=== PATIENT | male | born 1990 | race Caucasian/White ===

== ENCOUNTER 2021-06-27 17:06 | Emergency (ER) | payer BC, SELFPAY ==
[2021-06-27 17:08] VITALS: BP 141/85; PULSE 104; RESP 20; TEMP 38; O2SAT 95; BMI 29.7
--- NOTE | 2021-06-27 17:19 | XR_ITS ---
PROCEDURE INFORMATION: Exam: XR Chest Exam date and time: 06/27/21 05:19 PM Age: 31 years old Clinical indication: Shortness of breath; Additional info: SOB TECHNIQUE: Imaging protocol: XR of the chest. Views: 1 view. COMPARISON: No relevant prior studies available. FINDINGS: Lungs: Patchy left basilar atelectasis. No consolidation. Pleural spaces: Unremarkable. No pleural effusion. No pneumothorax. Heart/Mediastinum: Unremarkable. No cardiomegaly. Bones/joints: Unremarkable. IMPRESSION: Patchy left basilar atelectasis.
[2021-06-27 18:11] VITALS: BP 135/84; PULSE 80; RESP 18; O2SAT 96
--- NOTE | 2021-06-27 18:14 | [facility].EDSOB ---
ED Disposition Clinical Impression: Pneumonia due to COVID-19 virus Disposition: Home, Self-Care Condition on Discharge: Good Instructions: DI for COVID-19 (Suspected or Confirmed ) Prescriptions: Albuterol Sulfate [Albuterol Sulfate Hfa] 1 puff IH Q4HP PRN #1 each PRN Reason: Wheezing Prescription Printed Doxycycline Hyclate [Doxycycline Hyclate 100mg Tablet] 100 mg PO Q12 #20 tab Prescription Printed Referrals: Provider,Referral, [Primary Care Provider] - - Critical Care Critical Care Time: No Attestation: On 06/27/21, the high probability of a clinically significant, sudden or life threatening deterioration of the following system(s) required my full and direct attention, intervention and personal management. The time I documented below is in addition to time spent performing reported procedures but includes the following listed in this critical care notation. Medical Decision Making - Medical Records Medical records reviewed: Yes: I reviewed the patient's medical records. - [place] Inquiry Pt receiving controlled substance: No Vital Signs: 06/27/21 17:08 06/27/21 18:11 Temperature 100.4 F H Temperature Source Oral Pulse Rate 80 Pulse Rate [Radial] 104 H Respiratory Rate 20 18 Blood Pressure 135/84 Blood Pressure [Right Arm] 141/85 H Blood Pressure Mean [Right Arm] 103 Blood Pressure Position [Right Arm] Sitting 02 Sat by Pulse Oximetry 95 96 Oxygen Delivery Method Room Air Orders (Tests/Meds): ED MEDICATIONS Discontinued Medications Generic Name Dose Route Start Last Admin Trade Name Freq PRN Reason Stop Dose Admin Acetaminophen 1,000 mg 06/27/21 17:33 06/27/21 17:48 Acetaminophen 500mg Tab PO 06/27/21 17:34 1,000 mg ONCE ONE Administration Dexamethasone Sodium Phosphate 10 mg 06/27/21 17:33 06/27/21 17:48 Dexamethasone 4mg/Ml 5ml Mdv PO 06/27/21 17:34 10 mg ONCE ONE Administration Diphenhydramine HCl 25 mg 06/27/21 17:33 06/27/21 17:48 Diphenhydramine 25mg Capsule PO 06/27/21 17:34 25 mg ONCE ONE Administration - Radiology Data #1 Image(s): Chest Image Reviewed: Yes I reviewed the patient's radiology results, Yes I reviewed the patient's radiology image, Yes I reviewed the patient's radiology image w/the ED provider IMPRESSION: Patchy left basilar atelectasis. - Reevaluation(s) Time: 18:16 Reevaluation #1: On reevaluation, patient is feeling much better. There is no evidence of hypoxia. Nontoxic. Patient be discharged with short course of antibiotics. Needs a follow-up with PCP in 48 hours. Follow-up strict quarantine guidelines per CDC guidance. Given strict return precautions. Verbalized understanding. Medical Decision Narrative: 31-year-old male presented to the emergency department with some cough. Patient diagnosed with coronavirus last week. Findings consistent with bronchitis versus pneumonia. There is no respiratory distress or hypoxia. Work-up initiated. Resp/SOB HPI - General Chief Complaint: Shortness of Breath/Dyspnea Stated Complaint: covid positive, soa Time Seen by Provider: 06/27/21 17:15 Mode of Arrival: Ambulatory Limitations: No Limitations Description of Symptoms (Recalled from ER Triage Doc. by RN): to ed per pvt car with c/o sob, cough pt states tested +covid 06/20, today noticed he felt sob with walking. pt had his test at [facility]. - History of Present Illness This is a 31-year-old male presented to the emergency department with some shortness of breath. Patient states that he was diagnosed with coronavirus on the fourth of this month. He states that he has had some cough over the last few days, however felt that is worsened today. Productive in nature. Denies any hemoptysis. Is not having any associated shortness of breath. He denies any chest pain or palpitations. Patient has had some subjective fevers and chills. Full body myalgias. Denies any nausea or vomitin
[2021-06-27 18:34] VITALS: BP 123/65; PULSE 88; RESP 20; TEMP 37.2; O2SAT 96
== END 2021-06-27 18:35 | disposition home or self-care (01) ==
PROVIDERS: Emergency Provider Emergency Medicine
DX: U07.1 COVID-19 (principal); J12.82 Pneumonia due to coronavirus disease 2019
CPT/HCPCS: 71045; 99282